=== PATIENT | male | born 1985 | race Native Hawaiian/Other Pacific Islander ===

== ENCOUNTER 2023-03-29 08:59 | Emergency (ER) | payer OTHER ==
[~2023-03-29] VITALS: Ht 177.8 cm; Wt 81.6 kg
[2023-03-29 09:37] LABS: PLATELET COUNT 333 K/uL (142-355)
[2023-03-29 09:47] LABS: POTASSIUM 3.4 mmol/L (3.6-5.2)
[2023-03-29 14:33] VITALS: BP 100/64; TEMP 97.1
== END 2023-03-29 14:33 | disposition home or self-care (01) ==
LOC: ED 08:59
PROVIDERS: Family Medicine
DX: R11.2 Nausea with vomiting, unspecified (principal); W19.XXXA Unspecified fall, initial encounter
CPT/HCPCS: 36415; 80053; 80320; 81002; 82550; 83735; 84484; 85027; 85379; 85610; 85730; 93005; 96365; 96375; 99284; J1100; J1885; J2405

== ENCOUNTER 2023-04-03 23:12 | Emergency (ER) | payer OTHER ==
[~2023-04-03] VITALS: Ht 177.8 cm; Wt 79.4 kg
[2023-04-03 23:15] VITALS: BP 122/64; TEMP 98.3
[2023-04-04 00:26] LABS: PLATELET COUNT 332 K/uL (142-355)
[2023-04-04 00:34] LABS: POTASSIUM 3.6 mmol/L (3.6-5.2)
== END 2023-04-04 05:19 | disposition home or self-care (01) ==
LOC: ED 23:12
PROVIDERS: Family Medicine
DX: R53.1 Weakness (principal); M79.605 Pain in left leg; M79.604 Pain in right leg; R10.9 Unspecified abdominal pain
CPT/HCPCS: 36415; 80053; 81002; 85027; 85379; 96375; 99284; J2405